=== PATIENT | female | born 1985 | race Hispanic/Latino ===

== ENCOUNTER 2023-07-19 15:40 | Emergency (ER) | payer BC, SELFPAY ==
--- NOTE | ~2023-07-19 | CT_ITS ---
EXAMINATION: CT abdomen pelvis wo con DATE: 07/19/2023 16:55 INDICATION: Hematuria. TECHNIQUE: Computed tomography (CT) of the abdomen and pelvis was performed without intravenous contr ast. Automated exposure control and iterative reconstruction technique were employed. Exam dose: 373 .71 mGy-cm total exam DLP. COMPARISON: None. FINDINGS: The lung bases are clear. Normal heart size. No pericardial or pleural effusion. Status post bilateral augmentation mammoplasty. No hepatic, splenic, pancreatic or adrenal space-occupying mass lesion is evident. No bile duct or pa ncreatic duct dilatation. The gallbladder appears contracted. 2 mm upper pole nonobstructing right renal calculus. Pinpoint nonobstructing lower right renal calcul us. No left renal calculus. No hydronephrosis of either kidney. There are occasional bilateral pelvic calcifications, most likely calcified pelvic phleboliths. The u reters are difficult to trace in the pelvic area. If there is concern for ureteral calculi, consider repeat CT abdomen pelvis examination with IV contrast material and/or post intravenous contrast KUB The urinary bladder, uterus and adnexal areas are unremarkable. Normal caliber of the abdominal aorta. No intraperitoneal or retroperitoneal or pelvic mass lesion or adenopathy or ascites is detected. Normal appendix. No bowel obstruction, bowel wall thickening, pneumatosis or intraperitoneal free air is detected. Transitional lumbosacral vertebra with sacralization and pseudoarthrosis on the left, lumbarization o n the right. Mild bilateral hip osteoarthritis. Included skeletal structures are otherwise unremarkable. IMPRESSION: Mild right nonobstructive nephrolithiasis No renal mass lesion or hydronephrosis is evident Occasional bilateral pelvic calcifications; if there is concern for ureteral calculus, consider intra venous contrast material administration with subsequent KUB and/or CT examination examination Reviewed, dictated and finalized at Location A. Reviewed, dictated and finalized at location B. ITUTE DIRECTOR IMPRESSION: Mild right nonobstructive nephrolithiasis No renal mass lesion or hydronephrosis is evident Occasional bilateral pelvic calcifications; if there is concern for ureteral ca lculus, consider intravenous contrast material administration with subsequent K UB and/or CT examination examination
--- NOTE | ~2023-07-19 | CT_ITS ---
EXAMINATION: CT abdomen pelvis w con DATE: 07/19/2023 18:07 INDICATION: Hematuria TECHNIQUE: Computed tomography (CT) of the abdomen and pelvis was performed with 100 mL Omnipaque-350 intravenous contrast. Automated exposure control and iterative reconstruction technique were employe d. The dose-length product was 414.24 mGy-cm. COMPARISON: 07/19/2023 at 4:51 PM FINDINGS: Lung bases are clear. Heart size is normal. No pericardial or pleural effusion. Intracapsular rupture of bilateral breast implants some peripheral capsular calcification. Liver, gallbladder, spleen, ngo creas, bilateral adrenal glands and left kidney are normal. 2 mm calcified stone at the upper pole of the right kidney. No hydronephrosis. Small fat-containing umbilical hernia. Bladder, anteverted uter us and right ovary are normal. There are couple left adnexal cysts, the larger with peripheral rim en hancement likely representing a corpus luteum cyst measures 2.4 cm. Minimal amount of likely physiolo gic free fluid in the deep pelvis. No abscess or free intraperineal gas. There are few phleboliths in the pelvis. No pathologically enlarged abdominal or pelvic lymphadenopathy. Transitional L5 segment sacralized on the left. IMPRESSION: 1. Nonobstructing 2 mm right renal stone. Reviewed, dictated and finalized at location A. FIRST
[2023-07-19 15:41] VITALS: BP 157/92; PULSE 70; RESP 20; TEMP 36.8; O2SAT 99
--- NOTE | 2023-07-19 15:42 | ED.ABDPAIN ---
HPI - Abdominal Pain General Chief Complaint: Abdominal Pain Stated Complaint: abd pain Time Seen by Provider: 07/19/23 15:41 Source: patient Mode of arrival: ambulatory Limitations: no limitations History of Present Illness HPI narrative: Patient is a 38-year-old female with left greater than right-sided abdominal pain for the past week and a half. She has had a normal bowel movement daily. She was at the urgent care and they gave her medicine for UTI a week ago. She is still having pains. She was also noted to have blood in the urine at the Urgent Care today. She went to the urgent care twice. MD elicited complaint: abdominal pain Pertinent past history: none Onset (ago): week(s) (1.5) Pain Consistency: intermittent Location: LUQ, LLQ, L flank, pelvis and groin Severity: moderate Pain scale (0-10): 5 Quality: cramping and sharp Radiation: none Migration to: no migration Exacerbating factors: nothing Relieving factors: nothing Context: confirms history of similar episodes Associated symptoms: denies other symptoms Related Data Allergies Allergy/AdvReac Type Severity Reaction Status Date / Time No Known Allergies Allergy Verified 07/19/23 16:33 Review of Systems Review of Systems: All systems reviewed & are unremarkable except as noted in HPI and below Constitutional: Constitutional: Reports no additional constitutional complaints Eyes: Eyes: Reports no additional eye complaints ENT: Reports system reviewed and no additional complaints, except as documented Cardiovascular: Cardiovascular: Reports no additional cardiovascular complaints Respiratory: Respiratory: Reports no additional respiratory complaints Gastrointestinal: Gastrointestinal: Reports no additional gastrointestinal complaints Genitourinary: Genitourinary: Reports no additional female genitourinary complaints Musculoskeletal: Musculoskeletal: Reports no additional musculoskeletal complaints Integumentary/Breasts: Skin/Breast: Reports system reviewed and no additional complaints, except as docu Neurologic: Reports system reviewed and no additional complaints, except as documented Psychiatric: Psychiatric: Reports no additional psychiatric complaints Endocrine: Endocrine: Reports no additional endocrine complaints Hematologic/Lymphatic: Hematologic/Lymphatic: Reports no additional hematologic/lymphatic complaints Allergic/Immunologic: Allergic/Immunologic: Reports no additional allergic/immunologic complaints Exam Const: General: healthy appearing Nutritional Appearance: well nourished Orientation/consciousness: patient oriented x3 HENMT: Head: normal to inspection Ears: external ears normal Face/Nose/Sinus: Normal external nose present Eyes: Conjunctivae: conjunctivae normal Pupils: Equal, round and reactive pupils present EOM: EOMs intact bilaterally Neck: Neck: normal visual inspection Chest: Chest palpation & inspection: normal inspection of the chest Resp: Effort & Inspection: normal respiratory effort and not labored Auscultation: clear to auscultation bilaterally and no crackles Cardio: Rate: regular rate Rhythm: regular rhythm Heart sounds: no murmurs GI: Inspection: distended GI Palp: Yes Soft to palpation, Yes Tenderness to palpation present (GI) ( Diffuse tenderness), No Guarding due to palpation present (GI), No Rigid due to palpation, No Hernia present, No Palpable mass present and No Rebound tenderness present Auscultation: normal bowel sounds : General: Yes bladder normal to palpation Back/Spine/Pelvis: Back: no CVA tenderness Skin: General skin exam: normal color Rashes: no rashes Wounds: no wounds Neuro: General: patient oriented x3 Cranial nerves: Yes Nystagmus not present Speech: normal speech Extrem: General: normal to inspection Psych: Mental Status: mental status grossly normal Affect: normal affect Attitude: cooperative Course Vital Signs Vital signs: Vital Signs Temperatu
[2023-07-19 16:27] LABS: Basophils Absolute Auto 0.04 K/mm3 (0.00-0.10); Basophils Percent Auto 0.4 % (0.0-1.0); Eosinophils Absolute Auto 0.12 K/mm3 (0.02-0.50); Eosinophils Percent Auto 1.2 % (1.0-6.0); Hematocrit 37.5 % (35.0-49.0); Hemoglobin 12.3 g/dL (12.0-15.0); Immature Granulocyte Absolute 0.03 K/mm3 (0.00-0.00); Immature Granulocyte Percent A 0.3 % (0.0-0.0); Lymphocytes Percent Auto 30.8 % (18.0-42.0); Mean Corpuscular HGB Conc 32.8 g/dL (32.0-36.0); Mean Corpuscular Hemoglobin 28.9 pg (27.0-31.0); Mean Corpuscular Volume 88.2 fL (78.0-102.0); Mean Platelet Volume 8.6 fl (9.2-11.8); Monocytes Absolute Auto 0.59 K/mm3 (0.10-0.90); Monocytes Percent Auto 6.1 % (2.0-11.0); Neutrophils Percent Auto 61.2 % (50.0-70.0); Platelet Count Result 330 K/mm3 (150-420); Red Blood Count 4.25 M/mm3 (4.20-5.40); Red Cell Distribution Width 13.5 % (11.6-14.4); White Blood Count 9.7 K/mm3 (4.8-10.8)
[2023-07-19 16:28] LABS: Appearance Urine Clear (Clear); Bilirubin Urine Negative (Negative); Blood Urine 1+ (Negative); Color Urine Light Yellow (Yellow); Glucose Urine UA Negative (Negative); Ketones Urine Negative (Negative); Leukocyte Esterase Ur Negative LEU/UL (Negative); Nitrate Urine Negative (Negative); Protein Urine Negative (Negative); Specific Grav Ur 1.025 (1.010-1.020); Urobilinogen Urine 0.2 mg/dL (0.2-1.0)
[2023-07-19 16:32] LABS: Pregnancy On Board Control Positive; Urine Pregnancy Test Negative
[2023-07-19 16:45] LABS: Alanine Aminotransferase 25 U/L (14-59); Albumin Level 3.2 g/dL (3.4-5.0); Alkaline Phosphatase 76 U/L (46-116); Anion Gap 13 mmol/L (8-16); Aspartate Amino Transferase 17 U/L (15-37); Bilirubin,Total 0.2 mg/dL (0.00-1.00); Blood Urea Nitrogen 12 mg/dL (7-18); Calcium 8.1 mg/dL (8.5-10.1); Carbon Dioxide 23 mmol/L (21-32); Chloride 104 mmol/L (98-108); Estimated Glomerular Filt Rate > 60; Glucose 121 mg/dL (70-99); Lipase 23 U/L (16-77); Osmolality Calculated 290 mOsm/kg (285-295); Potassium 3.6 mmol/L (3.5-5.1); Sodium 140 mmol/L (136-145)
[2023-07-19 16:47] LABS: Lactic Acid Reflex 2.3 mmol/L (0.4-2.0)
[2023-07-19 16:53] LABS: Add Urine Microscopic? YES; RBC Urine 0-2 /hpf (0-2); WBC Urine 0-3 /hpf (0-3)
[2023-07-19 16:54] LABS: Bacteria Urine Rare /hpf; Squamous Epithelial Cell Urine Rare /hpf (Few)
--- NOTE | 2023-07-19 18:55 | PC.NURSE ---
report to hina zaragoza . no questions
[2023-07-19 19:23] LABS: Reflex Lactic Acid Yes or No Add Lactic
== END 2023-07-19 19:28 | disposition home or self-care (01) ==
PROVIDERS: Emergency Provider Emergency Medicine
DX: N83.209 Unspecified ovarian cyst, unspecified side (principal)
CPT/HCPCS: 36415; 74176; 74177; 74178; 80053; 81001; 81025; 83605; 83690; 85025; 99284; Q9967

== ENCOUNTER 2024-02-27 07:53 | Outpatient (CLI) | payer BC, SELFPAY ==
--- NOTE | ~2024-02-27 | US_ITS ---
EXAMINATION: US pelvic complete w TV DATE: 02/27/2024 08:26 INDICATION: Right pelvic pain. HPV screening for pelvic neoplasm TECHNIQUE: Multiple transabdominal and endovaginal sonographic images of the pelvis were obtained. COMPARISON: None. FINDINGS: The uterus measures 9.2 x 3.8 x 5.6 cm. The endometrial complex measures 7 mm in thickness. The righ t ovary measures 3.2 x 2.4 x 2.4 cm. The left ovary measures 3.1 x 2.2 x 2.7 cm. Lesser flow identifi ed in both ovaries on color Doppler. There are also a few small anechoic follicles in both ovaries th e largest on the left measuring 1.9 cm. There is no free fluid in the pelvis. IMPRESSION: 1. Normal pelvic ultrasound. Reviewed, dictated and finalized at location B.
== END 2024-02-27 07:54 | disposition home or self-care (01) ==
PROVIDERS: Visit Provider Advanced Practice Midwife
DX: R10.2 Pelvic and perineal pain (principal)
CPT/HCPCS: 76830; 76856

== ENCOUNTER 2025-06-02 07:38 | Outpatient (CLI) | payer BC, SELFPAY ==
--- NOTE | ~2025-06-02 | US_ITS ---
EXAMINATION: US pelvic complete w TV, 06/02/2025 7:45 PHYSICAL THERAPY AIDES TEACHER HISTORY: PELVIC AND PERINEAL PAIN Comparison: Comparison 02/27/2024 Technique: Schultz-scale and color Doppler images were obtained. Findings: Uterus: Uterus anteverted 8.7 x 5.4 x 4.7 cm, uterine body fibroid 1 x 0.7 cm. . Endometrium 7 mm. Right Ovary:Right ovary 3 x 1.6 x 2.2 cm, no adnexal mass, normal flow. Left Ovary: Left ovary 2.2 x 2.4 x 2.3 cm, there is a complex focus with solid features measuring 1 x 1.2 x 1 cm. Free Fluid: None Impression: 1. Complex left ovarian lesion possibly hemorrhagic follicle however other etiologies are not excluded. Six-week follow-up recommended to assess resolution Reviewed, dictated and finalized at location P. ICAL THERAPY AIDES TEACHER Impression: 1. Complex left ovarian lesion possibly hemorrhagic follicle however other etio logies are not excluded. Six-week follow-up recommended to assess resolution
--- OUTSIDE RECORDS SUMMARY | 2025-06-02 07:43 | XMS_ITS | Clinical Summary ---
Author Organization [facility] Address [address] [place] [address] Care Team Providers Care Cyber Forensic Specialist Name Role Phone None, Provider Primary Care Provider Unavaila ble Encounters Date Type Department Care Team Description 05/26/2025 12:20 PM BANQUET KITCHEN SUPERVISOR - 05/26/2025 11:59 PM BANQUET KITCHEN SUPERVISOR Hospital Encounter [facility] [address] [place] [address] Rhea Rutherford, ALTON Discharge Disposition: Home or Self Care (Routine Discharge) 05/26/2025 Orders Only [facility] [address] [place] [address] Rhea Rutherford, ALTON 05/26/2025 Travel from Last 3 Months Social History Tobacco Use Types Packs/Day Years Used Date Smoking Tobacco: Never Assessed Comments Unknown Sex and Gender Information Value Date Recorded Sex Assigned at Not on file Legal Sex Female 4:40 PM CDT Gender Identity Not on file Sexual Orientation Not on file Plan of Treatment Health Maintenance Due Date Last Done Comments Cervical Cancer Screening Pa p Smear (Age 30 to 64) Every 3 Years 1983 Annual Physical 1986 Hepatitis C 2001 DTaP, Tdap and Td Vaccines ( 1 - Tdap) 2002 Hepatitis B Vaccines (1 of 3 - 19+ 3-dose series) 2002 HPV Vaccines (1 - 3-dose SCD M series) 2010 Cervical Cancer Screening Pa p with HPV Testing (Age 30 to 64) Every 5 Years 2013 Cervical Cancer Screening with HPV 2013 Mammogram Screening 2023 COVID-19 Vaccine (2024-2 6 season) 2025 Influenza Adult (#1) 2025 Hepatitis A Vaccines Aged Out No long er eligible based on patient's age to complete this topic Meningococcal B Vaccine Aged Out No l onger eligible based on patient's age to complete this topic Meningococcal Vaccine Aged Out No katy radha eligible based on patient's age to complete this topic Pneumococcal Vaccine: Pediat rics (0 to 5 Years) and At-Risk Patients (6 to 49 Years) Aged Out No longer eligible b ased on patient's age to complete this topic RSV Immunizations Under 20 Months Aged Out No longer eligible based on patient's age to complete this topic Procedures Procedure Name Priority Date/Time Associated Diagnosis Comments HCG QUANT (SERUM)-CHORIONIC GONADOTROPIN Routine 05/26/2025 12:37 PM BANQUET KITCHEN SUPERVISOR Pelvic pain syndrome from Last 3 Months Results * HCG QUANT (SERUM)-CHORIONIC GONADOTROPIN (05/26/2025 12:37 PM BANQUET KITCHEN SUPERVISOR) HCG QUANTITATIVE <1 MIU/ML 05/26/20 25 2:09 PM BANQUET KITCHEN SUPERVISOR [facility] Comment: WEEKS OF REFERENCE RANGES NON- FEMALE 0-6 0.2 - 1 5 - 50 1 - 2 50 - 500 2 - 3 100 - 5000 3 - 4 500 - 10,000 4 - 5 1000 - 50,000 5 - 6 10,000 - 100,000 6 - 8 15,000 - 200,000 2 - 3 MONTHS 10,000 - 100,000 BLOOD VENOUS BLOOD SPECIMEN / Unknown 05/26/2025 12:37 PM BANQUET KITCHEN SUPERVISOR [facility] Final Result [facility] [address] [place] [address], [place] [phone] from Last 3 Months Insurance [facility] Care Teams Cyber Forensic Specialist Relationship Specialty Start Date End Date None, Provider, PCP - General 12/02/18
--- OUTSIDE RECORDS SUMMARY | 2025-06-02 07:43 | XMS_ITS | Clinical Summary ---
Author Organization [facility] Address [address] [place] [address] Phone Care Team Providers Care Cloth Worker Name Role Phone Unavailable Primary Care Provider Unavailabl e Allergies Active Allergy Reactions Criticality Noted Date Comments Penicillins Hives High 04/23/2014 Medications vit-iron fumarate-fa (MEIR ) 28 mg iron- 800 mcg Tablet Take 1 Tablet by mouth daily. Active ibuprofen (MOTRIN) 600 mg tablet Take 1 Tablet (600 mg) by mouth every 6 hours as needed for Other (See Comment) (for pain secondary to inflammation). 40 Tablet 8 Active fluconazole (DIFLUCAN) 150 mg tablet Take 1 tablet by mouth now, then repeat 2nd dose in 3 days.. 2 Tablet 8 Active docusate sodium (DOK) 100 mg capsule TAKE ONE CAPSULE BY MOUTH TWICE DAILY. 20 Capsule 3 8 Active valACYclovir (VALTREX) 1 gram tablet Take 1 tablet by mouth twice daily for 5 days for outbreak then 1 tab daily thereafter.. 35 Tablet 2 8 Active Active Problems Problem Noted Date Diagnosed Date Normal labor and delivery 08/05/2017 boy GHTN; circ done 07/23/2017 care, subsequent 12/13/2016 History of herpes genitalis 12/13/2016 Family History Medical History Relation Name Comments Healthy Brother 1 Healthy Brother 2 Diabetes Father Diabetes Mother Healthy Sister Relation Name Status Comments Brother 1 Alive Brother 2 Alive Father Alive Mother Alive Sister Alive Social History Tobacco Use Types Packs/Day Years Used Date Smoking Tobacco: Never Smokeless Tobacco: Never Alcohol Use Standard Drinks/Week Comments No 0 (1 standard drink = 0.6 oz pur e alcohol) Comments No Sex and Gender Information Value Date Recorded Sex Assigned at Not on file Legal Sex Female 11:47 AM EXECUTIVE OFFICE MANAGER Gender Identity Not on file Sexual Orientation Not on file Last Filed Vital Signs Vital Sign Reading Time Taken Comments Blood Pressure 130/80 08/26/2017 2:16 PM CDT Pulse 94 08/08/2017 6:52 AM EXECUTIVE OFFICE MANAGER Temperature 36.8 C (98.3 F) 08/08/2017 6:52 AM EXECUTIVE OFFICE MANAGER Respiratory Rate 18 08/08/2017 6:52 AM EXECUTIVE OFFICE MANAGER Oxygen Saturation 100% 08/05/2017 8:49 PM EXECUTIVE OFFICE MANAGER Inhaled Oxygen Concentration - - Weight 68.5 kg (151 lb) 08/26/2017 1:54 PM CDT Height 152.4 cm (5') 08/26/2017 1:54 PM CDT Body Mass Index 29.49 08/26/2017 1:54 PM CDT Plan of Treatment Health Maintenance Due Date Last Done Comments DTAP/TDAP/TD VACCINES (1 - Tdap) 2002 HEPATITIS B VACCINES (1 of 3 - 19+ 3-dose series) 2002 PAP SMEAR 12/15/2019 12/14/2016, 12/13/2016 CERVICAL CANCER SCREENING 12/13/2021 HPV/Cotest (21-29) 12/13/2021 12/13/2016 HPV/Cotest (30-65) 12/13/2021 12/13/2016 BREAST CANCER SCREENING 2023 INFLUENZA VACCINE (#1) 2025 HPV VACCINES (No Doses Required) Completed Procedures Procedure Name Priority Date/Time Associated Diagnosis Comments CERV/VAG CYTO SCREEN PAP RLFX HPV Routine 12/13/2016 3:42 PM CDT care, subsequent , unspecified trimester from Last 3 Months or Most Recently Relevant to Health Maintenance Results * (ABNORMAL) CERV/VAG CYTOPATH, THIN PREP IMAGR RFLX HPV (12/13/2016 3:42 PM CDT) Genital SWAB OF ENDOCERVIX / Unknown 12/13/2016 3:42 PM CDT Noelle Severinopingdania [facility]/CYTOLOGY GABRIEL FARRAR Final Result Performing Organization Address City/State/ZIP Co ms Phone Number NON [facility] from Last 3 Months or Most Recently Relevant to Health Maintenance Insurance [facility] [id number] Advance Directives For more information, please contact: [phone] * Full Code (Latest Code Status on File) Date Activated Date Inactivated Comments 08/06/2017 7:43 PM 08/08/2017 2:47 PM * Full Code Date Activated Date Inactivated Comments 08/05/2017 2:17 PM 08/06/2017 7:43 PM * Full Code Date Activated Date Inactivated Comments 07/23/2017 1:21 PM 07/23/2017 5:55 PM
== END 2025-06-02 07:39 | disposition home or self-care (01) ==
LOC: CHSIMG 07:41
PROVIDERS: PCP Advanced Practice Midwife; Visit Provider Advanced Practice Midwife
DX: R10.20 Pelvic and perineal pain unspecified side (principal); N83.8 Other noninflammatory disorders of ovary, fallopian tube and broad ligament
CPT/HCPCS: 76830; 76856